=== PATIENT | male | born 1980 | race Caucasian/White ===

== ENCOUNTER 2016-04-18 10:03 | Emergency (ER) | payer MEDICAID, OTHER ==
[~2016-04-18] VITALS: Ht 185.4 cm; Wt 78.0 kg
[~2016-04-18 10:03] MED LIST: MOTR200T PO
[2016-04-18 10:04] VITALS: BP 120/82; PULSE 92; RESP 16; TEMP 98.7; O2SAT 98
[2016-04-18] MEDS ORDERED: KETOROLAC TROMETHAMINE 60 MG/2 ML (IM) VIAL IM ONE (10:30)
--- NOTE | 2016-04-18 10:37 | PD ---
HPI Chief Complaint: Flank/Kidney Pain Time Seen by Provider: 10:14 Travel History International Travel<30 days: No Contact w/Intl Traveler<30days: No Traveled to known affect area: No History of Present Illness HPI 35-year-old male states earlier this morning he developed right sided back pain that was 10 out of 10 but now after taking a hot shower it's about 7 out of 10. He states he had this once before about a year ago but it went away so he never sought care for it. Quality of pain is sharp. He denies other modifying factors. He does state that he is having difficulty urinating where it's irritating and he can only get small amounts out. He denies prior STD or penile discharge. PFSH Past Medical History Medical History: Denies Significant Hx Cancer: No Cardiovascular Problems: No Diabetes: No Endocrine: No Genitourinary: No Hepatitis: No Hiatal Hernia: No Immune Disorder: No Musculoskeletal: No Neurologic: No Psychiatric: No Respiratory: Yes (sleep paralysis) Thyroid Disease: No Tetanus Vaccination: > 5 Years Influenza Vaccination: No Past Surgical History AICD: No Joint Replacement: No Pacemaker: No Social History Alcohol Use: Yes (1 BOTTLE WINE WEEKLY) Tobacco Use: Yes (1PPD) Substance Use: No Allergies-Medications (Allergen,Severity, Reaction): Coded Allergies: Penicillin (Verified Allergy, Severe, unknown reaction, 04/18/16) Reported Meds & Prescriptions Reported Meds & Active Scripts Active Flomax (Tamsulosin HCl) 0.4 Mg Cap 0.4 Mg PO HS Percocet (Oxycodone-Acetaminophen) 5-325 mg Tab 1 Tab PO Q6H PRN Macrobid (Nitrofurantoin Monoh/Nitrofur Macro) 100 Mg Cap 100 Mg PO BID 7 Days Review of Systems Except as stated in HPI: all other systems reviewed are Neg Physical Exam Narrative GENERAL: Well-nourished, well-developed patient. SKIN: Warm and dry. HEAD: Normocephalic and atraumatic. EYES: No injection or drainage. ENT: No nasal drainage noted. NECK: Supple, trachea midline. CARDIOVASCULAR: Regular rate and rhythm RESPIRATORY: Breath sounds equal bilaterally. No accessory muscle use. GASTROINTESTINAL: Abdomen soft, non-tender, nondistended. EXTREMITIES: No edema. BACK: Nontender without obvious deformity in midline, right sided CVA tenderness. NEUROLOGICAL: Awake and alert. Motor and sensory grossly within normal limits. Normal speech. Data Data Last Documented VS Vital Signs Date Time Temp Pulse Resp B/P Pulse Ox O2 Delivery O2 Flow Rate FiO2 04/18/16 12:04 69 17 100/69 98 Room Air 04/18/16 10:04 98.7 Orders Urinalysis - C+S If Indicated (04/18/16 10:17) Ct Abd/Pel W/O Iv Contrast (04/18/16 ) Ketorolac Inj (Toradol Inj) (04/18/16 10:30) Urine Culture (04/18/16 10:55) Basic Metabolic Panel (Bmp) (04/18/16 12:04) Complete Blood Count With Diff (04/18/16 12:04) Labs Laboratory Tests Test 04/18/16 04/18/16 10:55 12:15 Urine Collection Type CLEAN CATCH Urine Color YELLOW Urine Turbidity CLEAR Urine pH 7.0 Urine Specific [place] 1.008 Urine Protein NEG mg/dL Urine Glucose (UA) NEG mg/dL Urine Ketones NEG mg/dL Urine Occult Blood MOD Urine Nitrite NEG Urine Bilirubin NEG Urine Leukocyte Esterase NEG Urine RBC 10-14 /hpf Urine Squamous Epithelial 0-5 /hpf Cells Urine Bacteria MANY /hpf Microscopic Urinalysis Comment CULTURE INDICATED Urine Collection Time 10:55 White Blood Count 12.4 TH/MM3 Red Blood Count 5.17 MIL/MM3 Hemoglobin 15.5 GM/DL Hematocrit 45.6 % Mean Corpuscular Volume 88.1 FL Mean Corpuscular Hemoglobin 30.0 PG Mean Corpuscular Hemoglobin 34.1 % Concent Red Cell Distribution Width 13.0 % Platelet Count 199 TH/MM3 Mean Platelet Volume 9.1 FL Neutrophils (%) (Auto) 76.1 % Lymphocytes (%) (Auto) 15.6 % Monocytes (%) (Auto) 6.2 % Eosinophils (%) (Auto) 1.0 % Basophils (%) (Auto) 1.1 % Neutrophils # (Auto) 9.5 TH/MM3 Lymphocytes # (Auto) 1.9 TH/MM3 Monocytes # (Auto) 0.8 TH/MM3 Eosinophils # (Auto) 0.1 TH/MM3 Basophils # (Auto) 0.1 TH/MM3 CBC Comment DIFF FINAL Differential Comment Sodium Level 142 MEQ/L Potassium Level 3.8 MEQ/L Chloride Level 108 MEQ/L Carbon Dioxide Level 28.6 MEQ/L Anion Gap 5 MEQ/L Blood Urea Nitrogen 10 MG/DL Creatinine 1.10 MG/DL Estimat Glomerular Filtration 76 ML/MIN Rate Random Glucose 96 MG/DL Calcium Level 8.2 MG/DL MDM Medical Decision Making Medical Screen Exam Complete: Yes Emergency Medical Condition: Yes Medical Record Reviewed: Yes (past history confirmed) Interpretation(s) CBC & BMP Diagram 04/18/16 12:15 Last 24 hours Impressions Abdomen/Pelvis CT 04/18/16 0000 Signed Impressions: Service Date/Time: Monday, April 18, 2016 11:19 - CONCLUSION: 1. There is a 4 mm stone in the distal right ureter at the right UVJ. 2. Mild right-sided hydronephrosis. 3. Multiple bilateral tiny nonobstructing kidney stones. Musa Thibodeaux MD ua with uti Differential Diagnosis Kidney stone, UTI, musculoskeletal Narrative Course Discussed with patient checking blood work, UA, CT abdomen and he states he does not do good with needles and agrees to UA, CAT scan and one injection of Toradol. Given his symptoms have just started and his young age we can hold off on blood work unless his CAT scan shows signs concerning for obstruction ed workup with distal kidney stone at UVJ with mild [place], patient agrees to straight stick for blood and does not have a ride so is okay with going home with Percocet prescription if blood work is okay Patient denies any new complaints and states that they are feeling better. Patient happy with care, all questions answered. Patient knows that follow up is incumbent on them and to return to the emergency room immediately if new or worsening symptoms develop. Patient given strict return precautions, vitals reviewed and are normal, agrees to further workup as an outpatient. Diagnosis Primary Impression: Ureteral calculus, right Additional Impression: Pyelonephritis Referrals: Urologist call for appointment Patient Instructions: General Instructions Additional Instructions: macrobid as directed, percocet as needed for severe pain (don't take while driving), return as needed Med/Other Pt SpecificInfo: Prescription(s) given Scripts Tamsulosin (Flomax)0.4 Mg Cap0.4 Mg PO HS #7 CAP Ref 0 Prov:Eliana Dunham MD 04/18/16 Oxycodone-Acetaminophen (Percocet)5-325 mg Tab1 Tab PO Q6H PRN (PAIN) #15 TAB Prov:Eliana Dunham MD 04/18/16 Nitrofurantoin Monohydrate Macrocrystals (Macrobid)100 Mg Qvk019 Mg PO BID 7 Days Prov:Eliana Dunham MD 04/18/16 Disposition: 01 DISCHARGE HOME Condition: Stable Eliana Dunham MD Apr 18, 2016 10:37
[2016-04-18 11:17] LABS: GLUCOSE,URINE NEG (NEG); KETONE, URINE NEG (NEG); NITRITE,URINE NEG (NEG)
[2016-04-18 11:25] LABS: BLOOD, URINE MOD (NEG)
[2016-04-18 11:26] LABS: METHOD OF COLLECTION CLEAN CATCH; URINE COLOR YELLOW (YELLW/STRAW)
[2016-04-18 11:27] LABS: BACTERIA, URINE MANY /hpf; COMMENT (UR) CULTURE INDICATED; CULTURE IF INDICATED CULTURE INDICATED; SQUAMOUS EPITHELIAL CELL URINE 0-5 /hpf (0-5)
--- NOTE | 2016-04-18 11:41 | RADHPO ---
EXAM DATE/TIME: 04/18/2016 11:19 [facility] COMPARISON: No previous studies available for comparison. INDICATIONS : Right flank pain with burning and frequent urination. ORAL CONTRAST: No oral contrast ingested. RADIATION DOSE: 9.31 CTDIvol (mGy) MEDICAL HISTORY : None SURGICAL HISTORY : Orthopedic surgery. ENCOUNTER: Initial ACUITY: 2 days PAIN SCALE: 7/10 LOCATION: Right flank TECHNIQUE: Volumetric scanning of the abdomen and pelvis was performed. Using automated exposure control and ad justment of the mA and/or kV according to patient size, radiation dose was kept as low as reasonably achievable to obtain optimal diagnostic quality images. FINDINGS: LOWER LUNGS: The visualized lower lungs are clear. LIVER: Homogeneous density without lesion. There is no dilation of the biliary tree. No calcified gallston es. SPLEEN: Normal size without lesion. PANCREAS: Within normal limits. KIDNEYS: There is mild hydronephrosis of the right collecting system. No hydronephrosis of the left collecting system. Multiple bilateral subcentimeter stones are noted bilaterally. The stones measure approximat maribel 2-4 mm in size. There is dilatation of the right ureter. There is a 4 mm stone in the distal righ t ureter at the right UVJ. ADRENAL GLANDS: Within normal limits. VASCULAR: There is no aortic aneurysm. BOWEL/MESENTERY: The stomach, small bowel, and colon demonstrate no acute abnormality. There is no free intraperitone al air or fluid. The appendix is unremarkable. No inflammatory changes. ABDOMINAL WALL: Within normal limits. RETROPERITONEUM: There is no lymphadenopathy. BLADDER: No wall thickening or mass. 4 mm stone in the distal right ureter at the UVJ. REPRODUCTIVE: Within normal limits. INGUINAL: There is no lymphadenopathy or hernia. MUSCULOSKELETAL: Within normal limits for patient age. CONCLUSION: 1. There is a 4 mm stone in the distal right ureter at the right UVJ. 2. Mild right-sided hydronephrosis. 3. Multiple bilateral tiny nonobstructing kidney stones. Musa Thibodeaux MD on April 18, 2016 at 11:31 Board Certified Radiologist. This report was verified electronically.
[2016-04-18 12:04] VITALS: BP 100/69; PULSE 69; RESP 17; O2SAT 98
[2016-04-18 12:20] LABS: AUTOMATED NEUTROPHIL # 9.5 TH/MM3 (1.8-7.7); BASOPHIL # 0.1 TH/MM3 (0-0.2); BASOPHIL % 1.1 % (0.0-2.0); EOSINOPHIL # 0.1 TH/MM3 (0-0.4); HEMATOCRIT 45.6 % (39.0-51.0); HEMO FLAGS DIFF FINAL; LYMPH % 15.6 % (9.0-44.0); LYMPHOCYTE # 1.9 TH/MM3 (1.0-4.8); MEAN CELL VOLUME 88.1 FL (80.0-100.0); MEAN CORPUSCULAR HGB CONC 34.1 % (32.0-36.0); MONO % 6.2 % (0.0-8.0); NEUT % 76.1 % (16.0-70.0); PLATELET COUNT 199 TH/MM3 (150-450); RED BLOOD COUNT 5.17 MIL/MM3 (4.50-5.90); WHITE BLOOD COUNT 12.4 TH/MM3 (4.0-11.0)
[2016-04-18 12:27] LABS: POTASSIUM 3.8 MEQ/L (3.5-5.1)
[2016-04-18 12:30] LABS: BICARBONATE 28.6 MEQ/L (21.0-32.0)
[2016-04-18] MEDS ORDERED: PERC5TAB12 PO ×2 (12:38→12:41)
[2016-04-18] MEDS ORDERED: MACR100C2 PO ×2 (12:38→12:41)
[2016-04-18] MEDS ORDERED: TAMS5CAP PO ×2 (12:38→12:41)
== END 2016-04-18 13:05 | disposition home or self-care (01) ==
LOC: PHED 10:03
DX: N20.1 Calculus of ureter (principal); N12 Tubulo-interstitial nephritis, not specified as acute or chronic; F17.210 Nicotine dependence, cigarettes, uncomplicated
CPT/HCPCS: 74176; 80048; 81001; 85025; 87086; 96372; 99284; J1885

== ENCOUNTER 2016-12-19 01:53 | Emergency (ER) | payer SELFPAY ==
[~2016-12-19] VITALS: Ht 185.4 cm; Wt 72.6 kg
[~2016-12-19 01:53] MED LIST changes: +MACR100C2 PO; -MOTR200T PO; +PERC5TAB12 PO; +TAMS5CAP PO
[2016-12-19 02:01] VITALS: BP 128/81; PULSE 87; RESP 16; TEMP 98.2; O2SAT 98
[2016-12-19 02:10] VITALS: BP 128/81; PULSE 87; RESP 18; TEMP 98.2; O2SAT 98
[2016-12-19] MEDS ORDERED: LIDOCAINE HCL 1% PF 30 ML VIAL INFIL ONE (02:15)
[2016-12-19] MEDS ORDERED: TETANUS/DIPHTHERIA TOXOID ADULT 0.5 ML VIAL IM ONE (02:15)
--- NOTE | 2016-12-19 02:36 | RADRPT ---
EXAM DATE/TIME: 12/19/2016 02:22 [facility] COMPARISON: No previous studies available for comparison. INDICATIONS : Foreign body after glass falling and breaking on right foot. MEDICAL HISTORY : None. SURGICAL HISTORY : None. ENCOUNTER: Initial ACUITY: 1 day PAIN SCORE: 8/10 LOCATION: Right anterior surface of foot. FINDINGS: Three view examination of the right foot demonstrates no soft tissue swelling, dislocation, or fractu re. The tarsal bones appear intact. The interphalangeal and metatarsophalangeal joints are intact. The calcaneus is intact. Bony mineralization is normal. No radiopaque foreign body observed. CONCLUSION: Unremarkable examination of the right foot. Ilya Rodgers Jr., MD on December 19, 2016 at 2:34 Board Certified Radiologist. This report was verified electronically.
--- NOTE | 2016-12-19 02:57 | PD ---
HPI Chief Complaint: Laceration/Skin Injury Time Seen by Provider: 02:11 Travel History International Travel<30 days: No Contact w/Intl Traveler<30days: No Traveled to known affect area: No History of Present Illness HPI 36-year-old male presents to the emergency department for laceration to the dorsum of her of his right foot. Patient states just prior to arrival to the emergency department he dropped a glass on his foot sustaining a laceration. Patient denies any numbness tingling or weakness of the foot or toes and has intact range of motion. Patient's last tetanus immunization was approximately 10 years ago. Patient is not diabetic. [facility] Past Medical History Narrative Medical Sleep paralysis; tobacco use alcohol use: No skin is reviewed Cancer: No Cardiovascular Problems: No Diabetes: No Endocrine: No Genitourinary: No Hepatitis: No Hiatal Hernia: No Immune Disorder: No Musculoskeletal: No Neurologic: No Psychiatric: No Respiratory: Yes (sleep paralysis) Thyroid Disease: No Tetanus Vaccination: > 5 Years Influenza Vaccination: No Past Surgical History AICD: No Joint Replacement: No Pacemaker: No Other Surgery: No Social History Alcohol Use: Yes (1 BOTTLE WINE WEEKLY) Tobacco Use: Yes (1PPD) Substance Use: No Allergies-Medications (Allergen,Severity, Reaction): Coded Allergies: penicillin G (Unverified Allergy, Severe, unknown reaction, 12/19/16) Reported Meds & Prescriptions Reported Meds & Active Scripts Active Review of Systems Except as stated in HPI: all other systems reviewed are Neg Physical Exam Narrative GENERAL: Well-developed well-nourished male in no acute distress no respiratory distress SKIN: Warm and dry. MUSCULOSKELETAL: No cyanosis, or edema. Attention right foot 2 cm linear laceration to the dorsum of the right foot bleeding controlled patient demonstrates full range of motion of digits and intact dorsiflexion and plantarflexion no visualized tendon or neurovascular injury and no visualized foreign body. Capillary refill brisk and less than 2 seconds per digit Data Data Last Documented VS Vital Signs Date Time Temp Pulse Resp B/P (MAP) Pulse Ox O2 Delivery O2 Flow Rate FiO2 12/19/16 04:02 76 18 122/82 (95) 96 12/19/16 02:10 98.2 Orders Orders Foot, Complete ([id number]) (12/19/16 ) Tetanus/Diphtheria Tox Adult (Tetanus/Di (12/19/16 02:15) Lidocaine Pf 1% Inj (Xylocaine-Mpf 1% In (12/19/16 02:15) MDM Medical Decision Making Medical Screen Exam Complete: Yes Emergency Medical Condition: Yes Medical Record Reviewed: Yes Interpretation(s) Last Impressions Foot X-Ray 12/19/16 0000 Signed Impressions: Service Date/Time: Monday, December 19, 2016 02:22 - CONCLUSION: Unremarkable examination of the right foot. Ilya Rodgers Jr., MD Differential Diagnosis Contusion fracture foreign body laceration Narrative Course Imaging reveals no acute bony injury or radiopaque foreign body Laceration repair performed Patient stable for outpatient management is encouraged to have wound check at 2 days and suture removal in 7-10 days Procedures Procedure Narrative LACERATION LOCATION: Dorsum right foot LENGTH: 2 cm NUMBER OF STITCHES/APOLLO: 6 REPAIR: The area of the laceration was prepped with Betadine and sterilely draped. The laceration was infiltrated with 1% lidocaine plain. The wound was copiously irrigated and explored without evidence of foreign body, tendon injury or neurovascular injury. The wound was closed using 5-0 nylon. This was a single layer repair. A sterile dressing was applied. The patient was advised to keep the dressing clean and dry. Patient tolerated the procedure well. Tetanus status updated. Diagnosis Primary Impression: Laceration of foot Qualified Codes: S91.311A - Laceration without foreign body, right foot, initial encounter Referrals: Primary Care Physician 2 days Patient Instructions: General Instructions Departure Forms: Tests/Procedures, Work Release Special Instructions: no work x 1 day Additional Instructions: Keep one site clean and dry Wound check at 2 days Suture removal in 7-10 days No work times one day Elevate foot May apply cool compresses intermittently for first 12-24 hours to decrease soft tissue swelling May take acetaminophen/Tylenol every 4 hours as needed for minor pain or for fever 100.4F or greater May take ibuprofen 600 mg as often as every 6 hours as needed for pain associated with inflammation or for fever 100.4F or greater Return to emergency for for any concerns or change in condition Disposition: 01 DISCHARGE HOME Condition: Stable Bianca Randolph MD Dec 19, 2016 02:57
[2016-12-19 04:02] VITALS: BP 122/82
== END 2016-12-19 04:03 | disposition home or self-care (01) ==
LOC: PHED 01:53
DX: S91.311A Laceration without foreign body, right foot, initial encounter (principal); W25.XXXA Contact with sharp glass, initial encounter; Z23 Encounter for immunization
CPT/HCPCS: 12001; 73630; 90471; 90714